=== PATIENT | female | born 1980 | race Caucasian/White ===

== ENCOUNTER 2019-09-18 09:11 | Day surgery (SDC) | payer MEDICARE, MEDICAID ==
[2019-09-18] MEDS ORDERED: Propofol 200 MG/20 ML SDV ONE (09:17)
[2019-09-18] MEDS ORDERED: fentaNYL 100 MCG/2 ML SDV ONE (09:18)
[2019-09-18] MEDS ORDERED: Meropenem 500 MG SDV ONE (09:59)
[2019-09-18] MEDS ORDERED: Lidocaine 1% with EPINEPHrine 1:100,000 50 ML MDV ONE (09:59)
[2019-09-18] MEDS ORDERED: Bupivacaine 0.5% 50 ML MDV ONE (09:59)
[2019-09-18] MEDS: Dextrose 5%-Lactated Ringers 1,000 ML IV SCH (10:02)
[2019-09-18] MEDS: cefOXitin 2 GM in Sodium Chloride 0.9% 50 ML IV ONE (11:09)
[2019-09-18] MEDS ORDERED: Midazolam 1 MG/ML 2 ML SDV ONE (11:25)
[2019-09-18 13:20] VITALS: BP 100/64; PULSE 58
--- NOTE | 2019-09-28 09:07 | OR ---
DATE OF PROCEDURE: 09/18/2019 SURGEON: Freddie Duarte MD PREOPERATIVE DIAGNOSIS: Deep pressure ulcer, right trochanteric area. POSTOPERATIVE DIAGNOSIS: Deep pressure ulcer, right trochanteric area. OPERATIVE PROCEDURES: 1. Debridement of deep pressure ulcer, right trochanteric area with debridement including muscle near the portion of iliotibial tract (59755). 2. Placement of layered pressure therapy (wound VAC) to pressure ulcer in right trochanteric area (52376). ANESTHESIA: Local plus IV sedation. INDICATIONS FOR PROCEDURE: A 39-year-old with cerebral palsy, presenting with deep pressure ulcer of the right trochanteric area. The plan is to proceed with debridement of this and then application of wound VAC. Potential risks were reviewed with the patient's mother and she wishes to proceed. DETAILS OF PROCEDURE: The patient was taken to the operating room, placed in a left lateral decubitus position. The previous trochanteric area was taken down, area was prepped and draped while the patient received some ongoing IV sedation. Debridement of necrotic tissue continued to include some of the musculature in iliotibial tract. This came down close to the periosteum of the bone, but did not appear to go deeper than that. Wound was then inspected for hemostasis which appeared to be satisfactory. Wound VAC was then placed and the patient was taken to the recovery room in satisfactory condition. There were no evident complications. Freddie Duarte MD /[id number]
== END 2019-09-18 13:58 ==
LOC: JP.SDS 09:11
PROVIDERS: ATTEND Surgery
DX: L89.216 Pressure-induced deep tissue damage of right hip (principal); G80.9 Cerebral palsy, unspecified
CPT/HCPCS: 11043; 88304; J0694; J2250; J2704; J3010; J7050; J7121; J2185; J3490

== ENCOUNTER 2019-10-06 08:50 | Day surgery (SDC) | payer MEDICARE, MEDICAID, OTHER ==
[~2019-10-06 08:50] MED LIST: Bupivacaine 0.5% 50 ML MDV ONE; Lidocaine 1% with EPINEPHrine 1:100,000 50 ML MDV ONE; Meropenem 500 MG SDV ONE; Midazolam 1 MG/ML 2 ML SDV ONE; Propofol 200 MG/20 ML SDV ONE; fentaNYL 100 MCG/2 ML SDV ONE
[2019-10-06] MEDS ORDERED: Dextrose 5%-Lactated Ringers 1,000 ML IV SCH (09:30)
[2019-10-06] MEDS ORDERED: Meropenem 500 MG in Sodium Chloride 0.9% 50 ML IV ONE (10:30)
[2019-10-06 13:01] VITALS: BP 92/55; PULSE 59
--- NOTE | 2019-10-12 10:48 | OR ---
DATE OF PROCEDURE: 10/06/2019 SURGEON: Freddie Duarte MD PREOPERATIVE DIAGNOSIS: Enlarging right trochanteric pressure sore. POSTOPERATIVE DIAGNOSIS: Enlarging right trochanteric pressure sore. OPERATIVE PROCEDURES: 1. Debridement of right trochanteric pressure sore (27981). 2. Application of wound VAC (18547). ANESTHESIA: IV sedation. INDICATIONS FOR PROCEDURE: This is a 39-year-old with increasingly large right trochanteric pressure sore. Plan is to debride this. Potential risks of the procedure were reviewed with the patient's mother and father, and they wished to proceed. DETAILS OF PROCEDURE: The patient was taken to the operating room, and after being placed in a left lateral decubitus position, the right trochanteric area was prepped and draped. With IV sedation on board, the area of skin, subcutaneous tissue, and fascia down to the level of the iliotibial tract was all debrided. This was then taken to the point where there was no additional nonviable tissue present. Bleeding from all surfaces was controlled with electrocautery. The iliotibial tract, which was partially debrided, was at this point still exposed. At that point, a wound VAC was placed, and the patient was taken to the recovery room in satisfactory condition. The dimensions of the area debrided vertically were 5.0 cm, in a lateral direction 4.5 cm, and the depth was 2.1 cm. Freddie Duarte MD /[id number]
== END 2019-10-06 12:15 | disposition home or self-care (01) ==
LOC: JP.SDS 08:50
PROVIDERS: ATTEND Surgery
DX: L89.219 Pressure ulcer of right hip, unspecified stage (principal); Z88.8 Allergy status to other drugs, medicaments and biological substances
CPT/HCPCS: 11043; 11046; J2185; J2250; J2704; J3010; J7050; J7121; 88304; J3490

== ENCOUNTER 2021-02-25 09:41 | Emergency (ER) | payer MEDICARE, OTHER, MEDICAID ==
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
[2021-02-25] MEDS ORDERED: Potassium Chloride 10% 20 MEQ/15 ML Soln 15 ML UD Cup PO ONE (11:30)
--- NOTE | 2021-02-25 12:02 | CRLCR ---
For Patients: As a result of the Century Cures Act, medical imaging exams and procedure reports are released immediately into your electronic medical record. You may view this report before your referring provider. If you have questions, please contact your health care provider. INDICATION: Fever. TECHNIQUE: One view. IMPRESSION: Minor elevation right hemidiaphragm. Scoliosis to the left. Thecal catheter tip projects T3 vertebral body level. No acute cardiopulmonary disease. Dictated by Tom Watson MD @ 02/25/2021 12:00:[address] Tom Watson @ Feb 25 2021 12:00PM
[2021-02-25 12:04] VITALS: BP 118/67; PULSE 99
== END 2021-02-25 15:59 | disposition home or self-care (01) ==
LOC: JP.ED 09:41
DX: E87.6 Hypokalemia (principal); E03.9 Hypothyroidism, unspecified; Z88.8 Allergy status to other drugs, medicaments and biological substances; Z79.899 Other long term (current) drug therapy; Z20.822 Contact with and (suspected) exposure to COVID-19
CPT/HCPCS: 36415; 71045; 80048; 83735; 84145; 85027; 86140; 99283; A9270; U0002

== ENCOUNTER 2021-07-06 08:59 | Emergency (ER) | payer MEDICARE, OTHER ==
[2021-07-06 09:19] VITALS: BP 116/85; PULSE 105
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
[2021-07-06 10:27] LABS: CORONAVIRUS COVID-19 NAA NEGATIVE (NEGATIVE)
--- NOTE | 2021-07-07 09:31 | CR ---
CHEST: Portable 07/06/2021 at 10:01 AM CLINICAL HISTORY:Cough COMPARISON:02/25/2021 FINDINGS: There is some minimal patchy density in the left lower lobe not seen on prior study. This may be due to poor inspiratory level. Patient has moderate levoscoliosis. Patient has intrathecal catheter in place. Impression: Less than optimal inspiration Minimal patchy density left lower lobe. This may represent some patchy atelectasis. Minimal pneumonia is not excluded
== END 2021-07-06 11:01 | disposition home or self-care (01) ==
LOC: JP.ED 08:59
DX: J06.9 Acute upper respiratory infection, unspecified (principal); E03.9 Hypothyroidism, unspecified; Z88.8 Allergy status to other drugs, medicaments and biological substances; Z79.899 Other long term (current) drug therapy; Z20.822 Contact with and (suspected) exposure to COVID-19
CPT/HCPCS: 0241U; 71045; 99283